=== PATIENT | female | born 2000 | race Hispanic/Latino ===

== ENCOUNTER 2019-11-07 11:32 | Emergency (ER) | payer OTHER ==
--- OUTSIDE RECORDS SUMMARY | 2019-11-07 11:36 | XMS REPORT ---
Author Author [facility] Organization [facility] Address Unknown Phone Unavailable Care Team Providers Care Assembler Chassis Name Role Phone Vinnie LUNA Unavailable Unavailable Problems This patient has no known problems. Allergies, Adverse Reactions, Alerts This patient has no known allergies or adverse reactions. Medications This patient has no known medications. Results Test Description Test Time Test Comments Text Results Atomic Results Result Comments CT, ABDOMEN 2017-05-01 21:21:00 Reason for exam:->AB DOMINAL PAINReason for exam:->NAUSEAReason for exam:->EMESISWhat is the patient's sedation requirement?->No SedationIs the patient ?->Unknown FINAL REPORT EXAMINATION: CT SCAN OF THE ABDOMEN AND PELVIS CLINICAL HISTORY: Abdominal pain, nausea and emesis COMPARISON EXAM: None TECHNIQUE: Axial tomographic images were acquired through the abdomen and pelvis following the administration of oral and IV contrast. The exam was performed according to our departmental dose optimization program which includes automated exposure control, adjustment of the mA and/or kV according to patient's size and/or use of iterative reconstructive technique. FINDINGS: The heart size is normal. No evidence of a pericardial or pleural effusion. Minimal nonspecific increased attenuation is noted at the lung bases. Atelectatic lung is favored. The liver demonstrates homogeneous contrast enhancement. The gallbladder is mildly distended without evidence of pericholecystic edema or biliary dilatation. The pancreas is unremarkable. The spleen is mildly prominent measuring 13.4 cm. The left adrenal gland is associated with subtle limb thickening and or a small nodule. The right adrenal gland is unremarkable. No evidence of renal obstruction or nephrolithiasis. No evidence of mechanical bowel obstruction, pneumatosis, pneumoperitoneum or appendicitis. Segments of the colon demonstrate abnormal wall thickening, most pronounced involving the rectosigmoid colon. Along the left lateral aspect of the distal rectosigmoid colon, there is a 4 x 2 x 2 cm somewhat cystic structure with thin nearly imperceptible jacobson. Although partial volume averaging artifact cannot be excluded, a separate cystic process should be considered. A duplication cyst would be included in the differential diagnosis. Although an abscess cannot be excluded, the absence of associated inflammatory changes and the relatively thin jacobson are atypical. Primary mass lesion involving the wall of the colon cannot be excluded. Follow-up with gastroenterology recommended. Short-term surveillance imaging, preferably with enteric and/or rectal contrast throughout the rectosigmoid colon may be beneficial in further characterization. MRI may also be beneficial in further tissue characterization / delineation. The abdominal aorta is normal in caliber. Contrast also opacifies the portal venous system, mesenteric vessels, renal vessels, IVC and the iliac vessels. The uterus, adnexa and bladder are unremarkable. No significant pelvic free fluid. No evidence of an acute osseous abnormality. Degenerative changes result in spinal canal narrowing, most pronounced at L4-L5. IMPRESSION: Colonic wall thickening, nonspecific but concerning for a colitis. Recommend correlation with patient's clinical presentation. Small thin-walled 4 x 2 x 2 cm cystic structure along the left lateral aspect of the rectosigmoid colon as detailed above. Left adrenal limb thickening and/or nodularity. Surveillance imaging recommended to document stability. Mildly prominent spleen, 13.4 cm. Results discussed with Dr. Luna. Signed: Fabian Chiang MDReport Verified Date/Time: 05/01/2017 21:21:21 Reading Location: [address] Reading Room -LACTIC ACID, VENOUS 2017-05-01 20:42:00 POC-LACTIC ACID, VENOUS (BEAKER) (test code = 2805) 1.2 mmol/L 0.9-1.7 TESTED AT [facility] [address] [place] [id number] URINALYSIS W/ [id number] 19:03:00* Test Item Value Reference Range Comments COLOR (BEAKER) (test code = 470) Yellow CLARITY (BEAKER) (test code = 469) Clear SPECIFIC GRAVITY UA (BEAKER) (test code = 468) 1.021 1 .001-1.035 PH UA (BEAKER) (test code = 467) 6.0 5.0-8.0 PROTEIN UA (BEAKER) (test code = 464) Negative Negative GLUCOSE UA (BEAKER) (test code = 365) Negative Negative KETONES UA (BEAKER) (test code = 371) 20 mg/dL Negative BILIRUBIN UA (BEAKER) (test code = 462) Negative Negative BLOOD UA (BEAKER) (test code = 461) Negative Negative NITRITE UA (BEAKER) (test code = 465) Negative Negative LEUKOCYTE ESTERASE UA (BEAKER) (test code = 466) Negative Negative UROBILINOGEN UA (BEAKER) (test code = 463) 0.2 mg/dL 0.2-1 .0 RBC UA (BEAKER) (test code = 519) < /HPF WBC UA (BEAKER) (test code = 520) 0 /HPF BACTERIA (BEAKER) (test code = 517) Rare MUCUS (BEAKER) (test code = 1574) Rare SQUAMOUS EPITHELIAL (BEAKER) (test code = 516) 1 /HPF SOURCE(BEAKER) (test code = 2795) Urine, Clean Catch HEPATIC FUNCTION [id number] 17:31:00* Test Item Value Reference Range Comments TOTAL PROTEIN (BEAKER) (test code = 770) 8.9 gm/dL 6.0-8.3 Specimen markedly hemolyzed ALBUMIN (BEAKER) (test code = 1145) 4.7 g/dL 3.5-5.0 Specimen markedly hemolyzed BILIRUBIN TOTAL (BEAKER) (test code = 377) 1.3 mg/dL 0.2-1 .2 Specimen markedly hemolyzed BILIRUBIN DIRECT (BEAKER) (test code = 706) 0.3 mg/dL 0.1- 0.5 Specimen markedly hemolyzed ALKALINE PHOSPHATASE (BEAKER) (test code = 346) 85 U/L 40-150 AST (SGOT) (BEAKER) (test code = 353) 39 U/L 5-34 Specimen markedly hemolyzed ALT (SGPT) (BEAKER) (test code = 347) 22 U/L 6-55 Specimen markedly hemolyzed [id number] 17:31:00* Test Item Value Reference Range Comments LIPASE (BEAKER) (test code = 749) 6 U/L 8-78 COMPREHENSIVE METABOLIC [id number] 15:20:00* Test Item Value Reference Range Comments TOTAL PROTEIN (BEAKER) (test code = 770) 8.9 gm/dL 6.0-8.3 Specimen markedly hemolyzed ALBUMIN (BEAKER) (test code = 1145) 4.7 g/dL 3.5-5.0 Specimen markedly hemolyzed ALKALINE PHOSPHATASE (BEAKER) (test code = 346) 84 U/L 40-150 BILIRUBIN TOTAL (BEAKER) (test code = 377) 1.2 mg/dL 0.2-1 .2 Specimen markedly hemolyzed SODIUM (BEAKER) (test code = 381) 137 meq/L 136-145 POTASSIUM (BEAKER) (test code = 379) 5.0 meq/L 3.5-5.1 Specimen markedly hemolyzed CHLORIDE (BEAKER) (test code = 382) 105 meq/L 98-107 CO2 (BEAKER) (test code = 355) 17 meq/L 22-29 BLOOD UREA NITROGEN (BEAKER) (test code = 354) 13 mg/dL 7 -21 CREATININE (BEAKER) (test code = 358) 0.86 mg/dL 0.57-1.25 Specimen markedly hemolyzed GLUCOSE RANDOM (BEAKER) (test code = 652) 99 mg/dL 70-105 CALCIUM (BEAKER) (test code = 697) 9.9 mg/dL 8.4-10.2 AST (SGOT) (BEAKER) (test code = 353) 33 U/L 5-34 Specimen markedly hemolyzed ALT (SGPT) (BEAKER) (test code = 347) 20 U/L 6-55 Specimen markedly hemolyzed EGFR (BEAKER) (test code = 1092) mL/min/1.73 sq m INSUFFICIENT CLINICAL DATA TO CALCULATE ESTIMATED GFR. CBC W/PLT COUNT & AUTO [id number] 15:10:00* Test Item Value Reference Range Comments WHITE BLOOD CELL COUNT (BEAKER) (test code = 775) 11.7 K/ L 3.5-10.5 RED BLOOD CELL COUNT (BEAKER) (test code = 761) 5.33 M/ L 3.93-5.22 HEMOGLOBIN (BEAKER) (test code = 410) 14.9 GM/DL 11.2-15.7 HEMATOCRIT (BEAKER) (test code = 411) 45.7 % 34.1-44.9 MEAN CORPUSCULAR VOLUME (BEAKER) (test code = 753) 85.7 fL 79.4-94.8 MEAN CORPUSCULAR HEMOGLOBIN (BEAKER) (test code = 751) 28.0 pg 25.6-32.2 MEAN CORPUSCULAR HEMOGLOBIN CONC (BEAKER) (test code = 752) 32.6 GM/DL 32.2-35.5 RED CELL DISTRIBUTION WIDTH (BEAKER) (test code = 412) 13.3 % 11.7-14.4 PLATELET COUNT (BEAKER) (test code = 756) 287 K/CU MM 150-45 0 MEAN PLATELET VOLUME (BEAKER) (test code = 754) 11.5 fL 9.4-12.3 NUCLEATED RED BLOOD CELLS (BEAKER) (test code = 413) 0 /100 WBC 0-0 NEUTROPHILS RELATIVE PERCENT (BEAKER) (test code = 429) 90 % LYMPHOCYTES RELATIVE PERCENT (BEAKER) (test code = 430) 4 % MONOCYTES RELATIVE PERCENT (BEAKER) (test code = 431) 5 % EOSINOPHILS RELATIVE PERCENT (BEAKER) (test code = 432) 0 % BASOPHILS RELATIVE PERCENT (BEAKER) (test code = 437) 0 % NEUTROPHILS ABSOLUTE COUNT (BEAKER) (test code = 670) 10.62 K/ L 1.56-6.13 LYMPHOCYTES ABSOLUTE COUNT (BEAKER) (test code = 414) 0.49 K/ L 1.18-3.74 MONOCYTES ABSOLUTE COUNT (BEAKER) (test code = 415) 0.55 K/ L 0.24-0.36 EOSINOPHILS ABSOLUTE COUNT (BEAKER) (test code = 416) 0.01 K/ L 0.04-0.36 BASOPHILS ABSOLUTE COUNT (BEAKER) (test code = 417) 0.03 K/ L 0.01-0.08 IMMATURE GRANULOCYTES-RELATIVE PERCENT (BEAKER) (test code = 280 1) 0 % 0-1 POCT-LACTIC ACID, [id number] 14:36:00* Test Item Value Reference Range Comments POC-LACTIC ACID, VENOUS (BEAKER) (test code = 2805) 1.8 mmol/L 0.9-1.7 TESTED AT [facility] [address] [facility] [id number]
[2019-11-07 12:12] LABS: CLARITY,URINE SL CLOUDY (CLEAR); COLOR,URINE ORANGE (YELLOW)
[2019-11-07 12:13] LABS: BILIRUBIN,URINE SMALL (NEGATIVE); KETONES,URINE TRACE (NEGATIVE); LEUKOCYTE ESTERASE ,URINE NEGATIVE (NEGATIVE); NITRITE,URINE NEGATIVE (NEGATIVE); PROTEIN,URINE DIPSTICK 1+ (NEGATIVE); URINE UROBILINOGEN 1 mg/dL (0.2 - 1)
[2019-11-07 12:29] LABS: BACTERIA,URINE RARE /HPF; EPITHELIAL CELLS,URINE FEW /LPF; RBC,URINE >50 /HPF (0-5); WBC,URINE (MAN) >50 /HPF (0-5)
[2019-11-07 12:41] LABS: PREGNANCY TEST, URINE NEGATIVE (NEGATIVE)
[2019-11-07] MEDS ORDERED: ONDANSETRON HCL INJ 2MG/ML 2ML 2 MG/ML VIAL IV STA (13:32)
[2019-11-07] MEDS ORDERED: SODIUM CHLORIDE 0.9% 1000ML 1,000 ML IV STA (13:32)
[2019-11-07] MEDS ORDERED: KETOROLAC TROMETHAMINE 30 MG/ML VIAL IV STA (13:32)
[2019-11-07] MEDS ORDERED: CEFTRIAXONE SOD 1 GM/NS 50 ML 50 ML IV ONE (13:45)
--- NOTE | 2019-11-07 14:11 | Diagnostic Imaging Report ---
EXAMINATION: CT of the abdomen and pelvis without contrast. TECHNIQUE: Spiral CT images of the abdomen and pelvis were performed from the lung bases to the lesser trochanters. No intravenous contrast was given per renal stone protocol. Coronal and sagittal reformatted images were obtained. COMPARISON: None. CLINICAL HISTORY:Low back pain, hematuria DISCUSSION: ABSENCE OF INTRAVENOUS CONTRAST DECREASES SENSITIVITY FOR DETECTION OF FOCAL LESIONS AND VASCULAR PATHOLOGY. ABDOMEN/PELVIS: LOWER THORAX: Lung bases are unremarkable. No pleural effusion. HEPATOBILIARY:No focal hepatic lesions. No intrahepatic biliary ductal dilation. The gallbladder is unremarkable. SPLEEN: No splenomegaly or focal splenic lesion. PANCREAS: No focal masses or ductal dilatation. ADRENALS: No adrenal nodules. KIDNEYS/URETERS: No hydronephrosis, calculi, or solid or cystic mass lesions. PELVIC ORGANS/BLADDER: Urinary bladder is unremarkable. Uterus is anteflexed and appears normal. No adnexal mass. PERITONEUM/RETROPERITONEUM: 3.7 cm ovoid lesion between the rectum and distal sacrum/coccyx, average internal attenuation 20 Hounsfield units as seen on series 3 image 182. No ascites or pneumoperitoneum. LYMPH NODES: Scattered right lower quadrant mesenteric lymph nodes are increased in number but not enlarged by CT criteria. No retroperitoneal or mesenteric lymphadenopathy. VESSELS: Limited evaluation in the absence of intravenous contrast. The abdominal aorta is non-aneurysmal. GI TRACT: The large bowel shows no distension or wall thickening. Appendix is normal. No small bowel dilatation to suggest obstruction. BONES AND SOFT TISSUES: No osseous destructive lesions. No focal soft tissue abnormalities. IMPRESSION: No acute intra-abdominal or pelvic CT abnormalities. No urolithiasis per clinical query. Incidentally noted 3.7 cm cystic structure between the rectum and distal sacrum. 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 Outpatient MRI of the pelvis with and without contrast is suggested for further evaluation. Surgical referral should also be considered. Signed by: Dr. Leonidas Holden M.D. on 11/07/2019 2:08 PM
[2019-11-07 14:41] VITALS: BP 130/85
== END 2019-11-07 14:50 | disposition home or self-care (01) ==
LOC: ER 11:32
DX: R30.0 Dysuria (principal); R31.9 Hematuria, unspecified; R10.9 Unspecified abdominal pain; M54.5 Low back pain; N39.0 Urinary tract infection, site not specified
CPT/HCPCS: 74176; 81001; 81025; 87086; 99284; J0696; J1885; J2405; J7030

== ENCOUNTER 2024-04-09 20:15 | Emergency (ER) | payer OTHER ==
[~2024-04-09] VITALS: Ht 165.1 cm; Wt 129.3 kg
[2024-04-09] MEDS ORDERED: IOPAMIDOL 370 MG/ML 100 ML INFUS..BTL INJ ONE (21:35)
[2024-04-09] MEDS ORDERED: CYCLOBENZAPRINE5 MG PO (23:20)
[2024-04-09] MEDS: SODIUM CHLORIDE 0.9% 1000ML 1,000 ML IV SCH (23:25)
[2024-04-09] MEDS: KETOROLAC TROMETHAMINE 30 MG/ML VIAL IV STA (23:25)
[2024-04-09] MEDS: METOCLOPRAMIDE HCL 10 MG/2ML VIAL IV ONE (23:25)
[2024-04-09 23:45] VITALS: BP 147/81; PULSE 106; RESP 18; TEMP 100.3
[2024-04-09 23:52] VITALS: PULSE 106; RESP 18; TEMP 100.3; O2SAT 99
== END 2024-04-09 23:45 | disposition home or self-care (01) ==
LOC: FSED 20:36
DX: R51.9 Headache, unspecified (principal); M54.50 Low back pain, unspecified; R10.30 Lower abdominal pain, unspecified; Z11.52 Encounter for screening for COVID-19
CPT/HCPCS: 0223U; 74177; 80053; 81003; 85025; 87400; 99284; J1885; J2765; J7030; Q9967